=== PATIENT | female | born 1975 | race Asian ===

== ENCOUNTER 2019-03-15 09:27 | Outpatient (CLI) | payer OTHER | END 2019-03-15 20:42 | disposition home or self-care (01) | LOC: SMI 09:27 | DX: M25.561 Pain in right knee (principal) | CPT/HCPCS: 73721 ==

== ENCOUNTER 2021-05-19 10:50 | Outpatient (CLI) | payer OTHER ==
[2021-05-19] MEDS ORDERED: LIDOCAINE 1%, 20 ML MDV 20 ML ONE (11:26)
[2021-05-19] MEDS ORDERED: GADOTERATE MEGLUMINE 7.5 MMOL/15 ML VIAL IV ONE (11:27)
== END 2021-05-19 14:00 | disposition home or self-care (01) ==
LOC: SRD 10:50
DX: S43.432S Superior glenoid labrum lesion of left shoulder, sequela (principal); X58.XXXS Exposure to other specified factors, sequela; Z53.9 Procedure and treatment not carried out, unspecified reason
CPT/HCPCS: A9575; J2001; Q9967

== ENCOUNTER 2022-04-23 10:50 | Outpatient (CLI) | payer OTHER | END 2022-04-23 20:11 | disposition home or self-care (01) | LOC: SMI 10:50 | PROVIDERS: ATTEND Pain Medicine Interventional Pain Medicine | DX: M25.462 Effusion, left knee (principal); M25.461 Effusion, right knee | CPT/HCPCS: 73721 ==

== ENCOUNTER 2024-04-19 07:52 | Outpatient (CLI) | payer OTHER | END 2024-04-19 17:45 | disposition home or self-care (01) | LOC: SMI 07:52 | PROVIDERS: ATTEND Pain Medicine Interventional Pain Medicine | DX: M70.31 Other bursitis of elbow, right elbow (principal) | CPT/HCPCS: 73221 ==